=== PATIENT | male | born 1980 | race Caucasian/White ===

== ENCOUNTER 2023-12-01 08:40 | Emergency (ER) | payer OTHER ==
[~2023-12-01] VITALS: Ht 172.7 cm; Wt 93.7 kg
[2023-12-01 09:51] VITALS: BP 151/108; PULSE 82; RESP 16; TEMP 98.3; O2SAT 98
[2023-12-01] MEDS ORDERED: IBUP-1454 PO (10:31)
[2023-12-01] MEDS: TETANUS-DIPTH-ACEL PERTUSSIS 0.5ML SYR Tdap IM ONE (10:35)
== END 2023-12-01 10:32 | disposition home or self-care (01) ==
LOC: ER 08:40
DX: S80.11XA Contusion of right lower leg, initial encounter (principal); X50.0XXA Overexertion from strenuous movement or load, initial encounter; Y93.89 Activity, other specified; Y92.69 Other specified industrial and construction area as the place of occurrence of the external cause; Y99.8 Other external cause status
CPT/HCPCS: 73590; 73610; 90471; 90715